=== PATIENT | female | born 1935 | race Caucasian/White ===

== ENCOUNTER 2017-06-02 10:59 | Inpatient (IN) | payer OTHER ==
[~2017-06-02] VITALS: Ht 154.9 cm; Wt 117.9 kg
[~2017-06-02 10:59] MED LIST: ASPIR 8181 MG PO; COL100 PO; CRESTOR10 M1 PO; METOPROLOL TART25 M1 PO; METP PO; NORCO1 TA1 PO; OMEPRAZOLE DR20 M1 PO; TORADOL10 MG PO; VERALAN PO; ZES10 PO
[2017-06-02 13:30] LABS: BASOPHIL % 0.2 % (0-2); PLATELET COUNT 198 x10^3mcL (130-400)
[2017-06-02 13:40] LABS: CALCIUM 9.5 mg/dL (8.5-10.1); CARBON DIOXIDE 28.7 mmol/L (21-32); CHLORIDE SERUM 104 mmol/L (98-107); CREATININE SERUM 0.8 mg/dL (0.6-1.0); GLUCOSE SERUM 115 mg/dL (74-106); POTASSIUM SERUM 4.1 mmol/L (3.5-5.1); SODIUM SERUM 138 mmol/L (136-145)
[2017-06-02] MEDS ORDERED: CRESTOR10 M1 PO (13:51)
[2017-06-02] MEDS ORDERED: VERELAN PM300 MG PO (13:51)
[2017-06-02 17:28] VITALS: BP 136/76
[2017-06-02 18:51] LABS: CHOLESTEROL/HDL RATIO 2.8; MAGNESIUM 1.8 mg/dL (1.8-2.4); PHOSPHOROUS 2.8 mg/dL (2.5-4.9)
[2017-06-02 18:55] LABS: T3 TOTAL 1.05 ng/mL
[2017-06-02 19:28] LABS: FREE T4 1.15 ng/dL (0.76-1.46); FREE THYROXINE INDEX 2.9 ug/dL (1.4-4.5); T4(THYROXINE) 7.8 ug/dL (4.7-13.3)
[2017-06-02 20:56] VITALS: BP 120/53
[2017-06-03 04:59] VITALS: BP 118/51
[2017-06-03 06:06] LABS: BASOPHIL % 0.5 % (0-2); PLATELET COUNT 156 x10^3mcL (130-400); RED CELL DISTRIBUTION WIDTH 14.3 % (11.5-14.5)
[2017-06-03 06:29] LABS: CALCIUM 8.9 mg/dL (8.5-10.1); CARBON DIOXIDE 27.4 mmol/L (21-32); CHLORIDE SERUM 105 mmol/L (98-107); CREATININE SERUM 0.6 mg/dL (0.6-1.0); GLUCOSE SERUM 92 mg/dL (74-106); MAGNESIUM 1.7 mg/dL (1.8-2.4); PHOSPHOROUS 3.3 mg/dL (2.5-4.9); POTASSIUM SERUM 4.2 mmol/L (3.5-5.1); SODIUM SERUM 137 mmol/L (136-145)
[2017-06-03 06:47] LABS: microscopic required? YES; urine erythrocyte 1+ (NEGATIVE)
[2017-06-03 09:50] VITALS: BP 107/44
[2017-06-03 12:35] VITALS: BP 132/54
[2017-06-03 17:00] VITALS: BP 120/62
[2017-06-03 20:42] VITALS: BP 112/53
[2017-06-04 04:43] VITALS: BP 144/50
[2017-06-04 06:49] LABS: BASOPHIL % 0.4 % (0-2); PLATELET COUNT 158 x10^3mcL (130-400); RED CELL DISTRIBUTION WIDTH 13.9 % (11.5-14.5)
[2017-06-04 07:03] LABS: CALCIUM 9.1 mg/dL (8.5-10.1); CARBON DIOXIDE 26.7 mmol/L (21-32); CHLORIDE SERUM 106 mmol/L (98-107); CREATININE SERUM 0.5 mg/dL (0.6-1.0); GLUCOSE SERUM 113 mg/dL (74-106); PHOSPHOROUS 2.6 mg/dL (2.5-4.9); POTASSIUM SERUM 4.3 mmol/L (3.5-5.1); SODIUM SERUM 138 mmol/L (136-145)
[2017-06-04 09:32] VITALS: BP 143/56
[2017-06-04 16:21] VITALS: BP 103/45
[2017-06-04 21:00] VITALS: BP 96/56
[2017-06-05 05:25] VITALS: BP 132/59
[2017-06-05 06:16] LABS: BASOPHIL % 0.6 % (0-2); PLATELET COUNT 146 x10^3mcL (130-400); RED CELL DISTRIBUTION WIDTH 14.1 % (11.5-14.5)
[2017-06-05 06:20] LABS: CARBON DIOXIDE 29.1 mmol/L (21-32); CHLORIDE SERUM 108 mmol/L (98-107); CREATININE SERUM 0.6 mg/dL (0.6-1.0); GLUCOSE SERUM 91 mg/dL (74-106); MAGNESIUM 1.8 mg/dL (1.8-2.4); PHOSPHOROUS 2.6 mg/dL (2.5-4.9); POTASSIUM SERUM 4.4 mmol/L (3.5-5.1); SODIUM SERUM 139 mmol/L (136-145)
[2017-06-05 09:18] VITALS: BP 114/78
[2017-06-05] MEDS ORDERED: CRESTOR10 M1 PO (10:41)
[2017-06-05] MEDS ORDERED: IBUPROFEN400 MG PO (10:44)
[2017-06-05] MEDS ORDERED: NORCO1 TA1 PO (10:44)
[2017-06-05] MEDS ORDERED: VERALAN PO (10:44)
[2017-06-05] MEDS ORDERED: METP PO (10:44)
[2017-06-05] MEDS ORDERED: NOR10T PO (10:46)
[2017-06-05] MEDS ORDERED: COLACE100 MG PO (10:46)
[2017-06-05 10:57] VITALS: BP 114/78
== END 2017-06-05 14:35 | DRG 542 ==
LOC: ED 10:59 → DU 13:42 → MU 06-04 01:24
PROVIDERS: Emergency Medicine; ADMIT Family Medicine
PROC: 0CQ1XZZ Repair Lower Lip, External Approach (ICD-10-PCS; principal; 2017-06-02)
DX: M80.821A Other osteoporosis with current pathological fracture, right humerus, initial encounter for fracture (principal); K85.90 Acute pancreatitis without necrosis or infection, unspecified; Z68.42 Body mass index [BMI] 45.0-49.9, adult; S01.511A Laceration without foreign body of lip, initial encounter; R31.9 Hematuria, unspecified; I10 Essential (primary) hypertension; D64.9 Anemia, unspecified; E78.5 Hyperlipidemia, unspecified; E03.9 Hypothyroidism, unspecified; E66.01 Morbid (severe) obesity due to excess calories; Z86.718 Personal history of other venous thrombosis and embolism; Z79.82 Long term (current) use of aspirin; W07.XXXA Fall from chair, initial encounter; Y92.018 Other place in single-family (private) house as the place of occurrence of the external cause
CPT/HCPCS: 83880; 84439; 97110-GP; 97116-GP; 97530-GP; J1644; J1885; J2001; J2405; J3010; J3490; J7030; Q0092

== ENCOUNTER → 2017-07-21 | Outpatient (CLI) | payer OTHER ==
[~2017-07-21] MED LIST changes: +COLACE100 MG PO; +IBUPROFEN400 MG PO; +NOR10T PO; +VERELAN PM300 MG PO
== END | disposition home or self-care (01) ==
LOC: RD 15:45
DX: M25.511 Pain in right shoulder (principal)

== ENCOUNTER → 2017-09-01 | Outpatient (CLI) | payer OTHER, BC | END | disposition home or self-care (01) | LOC: RD 15:47 | DX: S42.201D Unspecified fracture of upper end of right humerus, subsequent encounter for fracture with routine healing (principal); X58.XXXD Exposure to other specified factors, subsequent encounter ==

== ENCOUNTER 2017-09-07 14:34 | Emergency (ER) | payer OTHER, BC ==
[~2017-09-07] VITALS: Ht 154.9 cm; Wt 96.6 kg
[2017-09-07 14:51] VITALS: Ht 154.9 cm; Wt 96.6 kg
[2017-09-07 16:55] VITALS: BP 130/64
== END 2017-09-07 16:55 | disposition home or self-care (01) ==
LOC: ED 14:34
DX: L03.115 Cellulitis of right lower limb (principal); E78.00 Pure hypercholesterolemia, unspecified; I10 Essential (primary) hypertension
CPT/HCPCS: 90715; Q0092

== ENCOUNTER → 2017-09-27 | Outpatient (CLI) | payer OTHER, BC | END | disposition home or self-care (01) | LOC: RD 13:40 | DX: M79.605 Pain in left leg (principal); M79.604 Pain in right leg ==

== ENCOUNTER 2017-11-20 03:49 | Emergency (ER) | payer OTHER, BC ==
[~2017-11-20] VITALS: Ht 154.9 cm; Wt 95.7 kg
[2017-11-20 04:02] VITALS: Ht 154.9 cm; Wt 95.7 kg
[2017-11-20 06:01] VITALS: BP 110/79
== END 2017-11-20 06:10 | disposition home or self-care (01) ==
LOC: ED 03:49
DX: J06.9 Acute upper respiratory infection, unspecified (principal); I10 Essential (primary) hypertension; E78.00 Pure hypercholesterolemia, unspecified
CPT/HCPCS: J7512; J7644

== ENCOUNTER → 2019-01-24 | Outpatient (CLI) | payer OTHER, BC | END | disposition home or self-care (01) | LOC: RD 12:10 | DX: S42.202D Unspecified fracture of upper end of left humerus, subsequent encounter for fracture with routine healing (principal); X58.XXXD Exposure to other specified factors, subsequent encounter ==

== ENCOUNTER → 2019-04-04 | Outpatient (CLI) | payer OTHER, BC | END | disposition home or self-care (01) | LOC: RD 08:50 | DX: S42.202D Unspecified fracture of upper end of left humerus, subsequent encounter for fracture with routine healing (principal); X58.XXXD Exposure to other specified factors, subsequent encounter ==